=== PATIENT | male | born 1970 | race Caucasian/White ===

== ENCOUNTER 2018-06-30 15:17 | Observation (INO) | payer OTHER ==
[2018-06-30] MEDS ORDERED: TETANUS & DIPHTHERIA TOX,ADULT 0.5 ML VIAL ONE (16:10)
[2018-06-30] MEDS ORDERED: HYDROCODONE/APAP 10/325 TAB ONE (16:16)
--- NOTE | 2018-06-30 16:50 | RAD REPORT ---
EXAM DESCRIPTION: RAD - Hand Right 3 View - 06/30/2018 4:32 pm CLINICAL HISTORY: Right hand pain status post injury FINDINGS: Comminuted mildly displaced fracture involves the mid aspect of the first proximal phalanx . No dislocation seen Old avulsion fracture of the distal ulna noted
--- NOTE | 2018-06-30 17:23 | ER ---
Nurse's Notes [facility] Name: Lennox Garcia III Age: 47 yrs Sex: Male : 1970 Arrival Date: 06/30/2018 Time: 15:20 Bed 26 Private MD: Diagnosis: Laceration without foreign body of right thumb without damage to nail;Displaced fracture of proximal phalanx of right thumb Presentation: 06/30 15:43 Presenting complaint: Patient states: Left thumb smashed between the angle iron, sg laceration sustained to the inner aspect of the thumb, bleeding controlled with pressure at this time. Transition of care: patient was not received from another setting of care. Onset of symptoms was June 30, 2018. Risk Assessment: Do you want to hurt yourself or someone else? Patient reports no desire to harm self or others. Initial Sepsis Screen: Does the patient meet any 2 criteria? No. Patient's initial sepsis screen is negative. Does the patient have a suspected source of infection? No. Patient's initial sepsis screen is negative. Care prior to arrival: None. 15:43 Method Of Arrival: Ambulatory sg 15:43 Acuity: CODY 4 sg Historical: - Allergies: 15:47 No Known Allergies; sg - Home Meds: 19:08 None [Active]; la1 - PMHx: 15:47 None; sg - PSHx: 15:47 None; sg - Immunization history:: Last tetanus immunization: < 10 years ago. - Social history:: Smoking status: Patient/guardian denies using tobacco. - Ebola Screening: : Patient negative for fever greater than or equal to 101.5 degrees Fahrenheit, and additional compatible Ebola Virus Disease symptoms Patient denies exposure to infectious person Patient denies travel to an Ebola-affected area in the 21 days before illness onset No symptoms or risks identified at this time. Screenin:55 Abuse screen: Denies threats or abuse. Nutritional screening: No deficits noted. la1 Tuberculosis screening: No symptoms or risk factors identified. Fall Risk None identified. Assessment: 15:54 General: Appears in no apparent distress. Behavior is calm, cooperative. Pain: la1 Complains of pain in palmar aspect of proximal phalanx of right thumb. Musculoskeletal: Circulation, motion, and sensation intact. Capillary refill < 3 seconds, is brisk, in bilateral fingers. Range of motion: intact in all extremities. 16:57 Reassessment: Patient appears in no apparent distress at this time. No changes from la1 previously documented assessment. Patient and/or family updated on plan of care and expected duration. Pain level reassessed. 18:12 Reassessment: Patient appears in no apparent distress at this time. No changes from la1 previously documented assessment. Patient and/or family updated on plan of care and expected duration. Pain level reassessed. Patient is alert, oriented x 3, equal unlabored respirations, skin warm/dry/pink. Vital Signs: 15:48 BP 134 / 105; Pulse 110; Resp 19; Temp 98.2; Pulse Ox 98% on R/A; Pain 6/10; sg 18:12 BP 146 / 105; Pulse 86; Resp 18; Pulse Ox 98% on R/A; la1 ED Course: 15:20 Patient arrived in ED. ds1 15:45 Triage completed. sg 15:45 Arm band placed on. sg 15:51 Femi Marquez, ELHAM is Primary Nurse. la1 15:55 Randee Lombardo FNP-C is PHCP. kb 15:55 Francisco Tom MD is Attending Physician. kb 15:55 Call light in reach. la1 16:30 Hand Right 3 View XRAY In Process Unspecified. EDMS 17:23 Brian Stahl MD is Hospitalizing Provider. kb 17:23 Dominique Stahl MD is Hospitalizing Provider. kb 17:43 EKG done, by ED staff. lt1 18:12 Inserted saline lock: 22 gauge in left forearm, using aseptic technique. Blood la1 collected. 19:37 No provider procedures requiring assistance completed. Patient admitted, IV remains in la1 place. Administered Medications: 16:07 Drug: Tetanus-Diphtheria Toxoid Adult 0.5 ml {Tucking Machine Operator: Anz[employer]. Exp: la1 05/25/2020. Lot #: [id number]. } Route: IM; Site: right deltoid; 17:02 Follow up: Response: No adverse reaction la1 16:07 Drug: Lidocaine (1 %) 1 vials Volume: 20 ml; Route: Infiltration; la1 16:08 Drug: Boling 10 mg-325 mg 1 tabs Route: PO; la1 17:02 Follow up: Response: No adverse reaction; Pain is decreased la1 18:13 Follow up: Response: No adverse reaction; Temperature is increased la1 17:01 CANCELLED (Physician Discretion): Ancef 1 grams IVPB once kb 18:11 Drug: Unasyn 3 grams Route: IVPB; Infused Over: 30 mins; Site: left forearm; la1 18:13 Follow up: IV Status: Infusion continued upon transfer la1 Outcome: 17:23 Decision to Hospitalize by Provider. kb 19:37 Admitted to Med/surg accompanied by tech, via wheelchair, room 216, with chart. la1 19:37 Condition: stable 19:37 Instructed on the need for admit. 19:38 Patient left the ED. la1 Signatures: Dispatcher [employer] EDMS Randee Lombardo, ASBESTOS WIRE FINISHER-C ASBESTOS WIRE FINISHER-Martin Fernandes RN Pauline Krause ds1 Femi Marquez RN RN laLeann Charles 1
--- NOTE | 2018-06-30 17:23 | EDPHYS ---
Physician Documentation [facility] Name: Lennox Garcia III Age: 47 yrs Sex: Male : 1970 Arrival Date: 06/30/2018 Time: 15:20 Bed 26 Private MD: Francisco Toth HPI: 06/30 16:16 This 47 yrs old Male presents to ER via Ambulatory with complaints of Thumb kb Injury - Laceration. 16:16 The patient has a laceration related to: cutting a piece of steel occurred at home, and kb there are no complicating factors. The injury was accidental. The laceration(s) is(are) located on the dorsal aspect of proximal phalanx of right thumb. Onset: The symptoms/episode began/occurred just prior to arrival. Associated signs and symptoms: The patient has no apparent associated signs or symptoms. The patient has not experienced similar symptoms in the past. The patient has not recently seen a physician. Historical: - Allergies: 15:47 No Known Allergies; sg - Home Meds: 19:08 None [Active]; la1 - PMHx: 15:47 None; sg - PSHx: 15:47 None; sg - Immunization history:: Last tetanus immunization: < 10 years ago. - Social history:: Smoking status: Patient/guardian denies using tobacco. - Ebola Screening: : Patient negative for fever greater than or equal to 101.5 degrees Fahrenheit, and additional compatible Ebola Virus Disease symptoms Patient denies exposure to infectious person Patient denies travel to an Ebola-affected area in the 21 days before illness onset No symptoms or risks identified at this time. ROS: 16:15 Constitutional: Negative for fever, chills, and weight loss, Cardiovascular: Negative kb for chest pain, palpitations, and edema, Respiratory: Negative for shortness of breath, cough, wheezing, and pleuritic chest pain, Abdomen/GI: Negative for abdominal pain, nausea, vomiting, diarrhea, and constipation, Back: Negative for injury and pain, MS/Extremity: Negative for injury and deformity, Neuro: Negative for headache, weakness, numbness, tingling, and seizure. 16:15 Skin: Positive for laceration(s), swelling, of the dorsal aspect of proximal phalanx of right thumb. Exam: 16:15 Constitutional: This is a well developed, well nourished patient who is awake, alert, kb and in no acute distress. Head/Face: Normocephalic, atraumatic. Chest/axilla: Normal chest wall appearance and motion. Nontender with no deformity. No lesions are appreciated. Cardiovascular: Regular rate and rhythm with a normal S1 and S2. No gallops, murmurs, or rubs. Normal PMI, no JVD. No pulse deficits. Respiratory: Lungs have equal breath sounds bilaterally, clear to auscultation and percussion. No rales, rhonchi or wheezes noted. No increased work of breathing, no retractions or nasal flaring. Abdomen/GI: Soft, non-tender, with normal bowel sounds. No distension or tympany. No guarding or rebound. No evidence of tenderness throughout. MS/ Extremity: Pulses equal, no cyanosis. Neurovascular intact. Full, normal range of motion. Neuro: Awake and alert, GCS 15, oriented to person, place, time, and situation. Cranial nerves II-XII grossly intact. Motor strength 5/5 in all extremities. Sensory grossly intact. Cerebellar exam normal. Normal gait. 16:15 Skin: injury, laceration(s), the wound is approximately 3 cm(s), of the dorsal aspect of proximal phalanx of right thumb, that can be described as clean, no foreign body, linear, with mild bleeding. Vital Signs: 15:48 BP 134 / 105; Pulse 110; Resp 19; Temp 98.2; Pulse Ox 98% on R/A; Pain 6/10; sg 18:12 BP 146 / 105; Pulse 86; Resp 18; Pulse Ox 98% on R/A; la1 Laceration: 17:21 Wound Repair of 3cm ( 1.2in ) subcutaneous laceration to dorsal aspect of proximal kb phalanx of right thumb. Linear shaped.. Distal neuro/vascular/tendon intact. Anesthesia: Wound infiltrated with 2 mls of 1% lidocaine. Wound prep: Extensive cleansing with betadine by il, Wound irrigation with saline by il. Skin closed with 4 5-0 Prolene using interrupted sutures and sterile technique. Dressed with 4x4's. Patient tolerated well. MDM: 15:56 Patient medically screened. [facility] 16:15 Data reviewed: vital signs, nurses notes. Data interpreted: Pulse oximetry: on room air kb is 98 %. Interpretation: normal. 16:55 Counseling: I had a detailed discussion with the patient and/or guardian regarding: the kb historical points, exam findings, and any diagnostic results supporting the discharge/admit diagnosis, lab results, the need for further work-up and treatment in the hospital. Physician consultation: Mp Hartley MD was contacted at 16:56, regarding admission, to the medical/surgical unit. consult, patient's condition, and will see patient in inpatient room. 17:21 Physician consultation: Dominique Stahl MD was contacted at 17:21, regarding admission, kb patient's condition, and will see patient in inpatient room. 06/30 17:01 Order name: CBC with Diff kb 06/30 17:01 Order name: Basic Metabolic Panel kb 06/30 16:04 Order name: Hand Right 3 View XRAY; Complete Time: 16:52 kb 06/30 16:04 Order name: Prolene, Sutures; Complete Time: 16:13 kb 06/30 16:04 Order name: Dressing - Wound; Complete Time: 18:13 kb 06/30 16:04 Order name: Gloves, Sterile; Complete Time: 16:13 kb 06/30 16:04 Order name: Setup Suture Tray; Complete Time: 16:13 kb 06/30 17:00 Order name: IV Start; Complete Time: 17:57 kb 06/30 17:03 Order name: EKG; Complete Time: 17:03 ms 06/30 17:03 Order name: EKG - Nurse/Tech; Complete Time: 17:52 ms Administered Medications: 16:07 Drug: Tetanus-Diphtheria Toxoid Adult 0.5 ml {Rotary Drill Operator Helper: [employer]otolog. Exp: la1 05/25/2020. Lot #: [id number]. } Route: IM; Site: right deltoid; 17:02 Follow up: Response: No adverse reaction la1 16:07 Drug: Lidocaine (1 %) 1 vials Volume: 20 ml; Route: Infiltration; la1 16:08 Drug: Florence 10 mg-325 mg 1 tabs Route: PO; la1 17:02 Follow up: Response: No adverse reaction; Pain is decreased la1 18:13 Follow up: Response: No adverse reaction; Temperature is increased la1 17:01 CANCELLED (Physician Discretion): Ancef 1 grams IVPB once kb 18:11 Drug: Unasyn 3 grams Route: IVPB; Infused Over: 30 mins; Site: left forearm; la1 18:13 Follow up: IV Status: Infusion continued upon transfer la1 Disposition: 07/01 07:57 Co-signature as Attending Physician, Francisco Tom MD I agree with the assessment and [facility] plan of care. Disposition: 06/30/18 17:23 Hospitalization ordered by Dominique Stahl for Observation. Preliminary diagnosis are Laceration without foreign body of right thumb without damage to nail, Displaced fracture of proximal phalanx of right thumb. - Bed requested for Telemetry/MedSurg (observation). - Status is Observation. la1 - Condition is Stable. - Problem is new. - Symptoms are unchanged. UTI on Admission? No Signatures: Dispatcher [employer] EDRandee Wilson, ANJELICA-Ofe SPECIALIST MANAGERS-Martin Fernandes, RN Francisco Alexander MD MD cha Solis, Maria ms Attema, Femi RN RN la1 Corrections: (The following items were deleted from the chart) 06/30 16:16 16:15 Skin: Positive for kb kb 17:01 17:00 Ancef 1 grams IVPB once ordered. kb kb 18:18 17:23 Hospitalization Ordered by A Favio HARRIS for Observation. Preliminary diagnosis is ms Laceration without foreign body of right thumb without damage to nail; Displaced fracture of proximal phalanx of right thumb. Bed requested for Telemetry/MedSurg (observation). Status is Observation. Condition is Stable. Problem is new. Symptoms are unchanged. UTI on Admission? No. kb 19:38 18:18 06/30/2018 17:23 Hospitalization Ordered by A Favio HARRIS for Observation. la1 Preliminary diagnosis is Laceration without foreign body of right thumb without damage to nail; Displaced fracture of proximal phalanx of right thumb. Bed requested for Telemetry/MedSurg (observation). Status is Observation. Condition is Stable. Problem is new. Symptoms are unchanged. UTI on Admission? No. ms
[2018-06-30 17:50] LABS: Absolute Lymphocytes (CBC) 1.7 K/uL (0.7-4.9); Absolute Monocytes 1.1 K/uL (0.1-1.3); Absolute Neutrophil 7.8 K/uL (1.8-8.0); Basophils % 0.7 % (0-1.3); Eosinophils % 2.4 % (0-4.4); Hematocrit 44.7 % (39.6-49.0); Lymphocytes % 15.6 % (15.3-44.8); MPV 9.4 fL (7.6-11.3); RBC Red Blood Cell Count 4.84 M/uL (4.33-5.43)
[2018-06-30] MEDS ORDERED: AMPICILLIN/SULBACT 3 GM in NA CHLORIDE 0.9% 100 ML IVPB ONE (18:00)
[2018-06-30 18:18] LABS: BUN Blood Urea Nitrogen 14 mg/dL (7-18); Bicarbonate 25 mmol/L (21-32); Glucose Level 101 mg/dL (74-106); Potassium 4.3 mmol/L (3.5-5.1); Sodium Level 138 mmol/L (136-145)
[2018-06-30] MEDS: AMPICILLIN/SULBACT 3 GM in NA CHLORIDE 0.9% 100 ML IVPB SCH (19:51)
[2018-06-30] MEDS ORDERED: ONDANSETRON 4 MG/2 ML VIAL IV PRN (19:51)
[2018-06-30] MEDS ORDERED: MORPHINE 4 MG/ML SYR IV PRN (19:51)
[2018-06-30 20:15] VITALS: BMI 31.4
[2018-06-30] MEDS: NA CHLORIDE 0.9% 1,000 ML IV SCH (20:35)
[2018-06-30 21:15] LABS: Urine Appearance CLEAR; Urine Bilirubin NEGATIVE (NEG); Urine Blood NEGATIVE (NEG); Urine Color YELLOW; Urine Glucose NEGATIVE (NEG); Urine Protein NEGATIVE (NEG); Urine Urobilinogen 0.2 mg/dL (0.2-1.0)
[2018-06-30 21:32] LABS: Urine Microscopic Reflex NO UMIC
[2018-07-01] MEDS ORDERED: AMPICILLIN/SULBACTAM 3GM/VIAL ONE (00:19)
[2018-07-01] MEDS ORDERED: NA CHLORIDE 0.9% 200 ML ONE (00:29)
[2018-07-01] MEDS: AMPICILLIN/SULBACT 3 GM in NA CHLORIDE 0.9% 100 ML IVPB SCH ×4 (06:00→11:17)
[2018-07-01] MEDS: NA CHLORIDE 0.9% 1,000 ML IV SCH (06:15)
[2018-07-01] MEDS ORDERED: Ringers Lactate 1,000 ML IV ONE (08:55)
[2018-07-01] MEDS ORDERED: PROPOFOL 200 MG/20 ML VIAL IV ONE (09:09)
[2018-07-01] MEDS ORDERED: ONDANSETRON 4 MG/2 ML VIAL ONE (09:10)
[2018-07-01] MEDS ORDERED: LIDOCAINE 2% MPF 5 ML VIAL ONE (09:10)
[2018-07-01] MEDS ORDERED: FENTANYL CITR 100 MCG/2 ML ONE (09:10)
[2018-07-01] MEDS ORDERED: MIDAZOLAM HCL 2 MG/2 ML INJ ONE (09:10)
[2018-07-01] MEDS: MORPHINE 4 MG/ML SYR ONE ×2 (10:29→10:39)
[2018-07-01] MEDS: MEPERIDINE HCL 50 MG/ML AMP ONE ×2 (10:50→10:55)
[2018-07-01 11:01] VITALS: O2SAT 96
--- NOTE | 2018-07-01 11:05 | RAD REPORT ---
EXAM DESCRIPTION: RAD - Hand Right 3 View - 07/01/2018 9:54 am CLINICAL HISTORY: Surgical repair of fractured first proximal phalanx COMPARISON: June 30 FINDINGS: Multiple portable C-arm views were obtained during fluoroscopic assisted placement of frac ture fixation hardware. Fluoro time was 1.4 minutes. There were 33 spot images obtained. Images show stepwise placement of fracture fixation hardware. No suspicious or unexpected finding.
[2018-07-01 12:28] VITALS: BP 118/75; TEMP 97.9
--- NOTE | 2018-07-01 18:42 | EKG ---
Test Date: 2018-06-30 Test Time: 17:39:44 Order Expediter: MIREYAT MEASUREMENT RESULTS: Intervals: Rate: 83 RI: 162 QRSD: 92 QT: 362 QTc: 425 Kinsey: P: 46 RI: 162 QRS: 41 T: 39 INTERPRETIVE STATEMENTS: Normal sinus rhythm Normal ECG Compared to ECG 02/15/2012 20:53:26 No significant changes Electronically Signed On 07-01-18 18:41:25 CONDENSER TESTER by Jan Coronel
--- NOTE | 2018-07-01 21:35 | OP ---
Surgeon: Mp Hartley MD Preoperative Diagnosis: Open fracture, right thumb proximal phalanx. Postoperative Diagnosis: Open fracture, right thumb proximal phalanx. Procedures Performed: Percutaneous pinning, debridement of skin and subcutaneous tissue, simple clos ure of 2-cm wound surgical, and splint. Anesthesia: General. Procedure In Detail: After satisfactory induction of general seizure, right hand was prepped with Be tadine scrub and Betadine paint. Dry sterile drapes were applied in usual manner. The arm was eleva osiris and exsanguinated with Esmarch. Tourniquet was inflated to 250 mmHg. Hand was placed on the ope rating field. A C-arm was brought in with sterile draping and then 0.045 K-wires were placed from pr oximal to distal entering the fracture of the proximal phalanx. The C-arm revealed adequate reductio n. The wires were bent and cut and then the patient underwent debridement of skin and subcutaneous t issue. The wound was jet lavaged, irrigated with 3 L of dilute Betadine solution. Tourniquet was re leased. Electrocautery was used for hemostasis. Wound was closed with 4-0 Prolene vertical mattress and dressed with Xeroform, 2-inch Faviola, Kerlix, and a thumb spica splint. The patient tolerated th e procedure well and returned to recovery. NEETU Voice ID: [id number] Report ID: [id number]
--- NOTE | 2018-07-02 06:51 | HP ---
Date of Admission: 07/01/2018 Chief Complaint: Injury to right thumb. History Of Present Illness: This is a 47-year-old male patient who was working in a shop yesterday at home and a metal object hit his right thumb. The patient had gloves on and after this injury he came to emergency room. Further evaluation revealed laceration of the right thumb in the mid thumb area with underlying fracture. Laceration was repaired by ER physician and the patient was admitted to the hospital, IV antibiotic was started, and hand surgeon, Dr. Hartley was consulted. This morning when I saw him, his was at bedside with him. Medications: He takes omeprazole on a p.r.n. basis. He was prescribed amlodipine and atorvastatin, but he does not take those. Allergies: No known allergies. Review of Systems: Musculoskeletal: As mentioned above. All other systems reviewed and negative. Social History: Negative for smoking. Use of alcohol, positive. Family History: Not pertinent. 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 Otherwise , past surgical history unremarkable. Past Medical History: Hypertension, mixed hyperlipidemia, and abnormal liver function tests. Physical Examination: Vital Signs: Temperature 98.2, pulse 73, respiratory rate 18, blood pressure 112/72, oxygen saturation 94%. Height 5 feet 8 inches, weight 207 pounds. General: Awake, alert, oriented, not in distress. HEENT: Head atraumatic, normocephalic. Conjunctivae nonerythematous. Sclerae white. Mouth, no thrush or edema noted. Ears/Nose, no mass, lesion, discharge noted. Neck: Supple. No JVD, lymph nodes, bruit, thyromegaly noted. Lungs: Bilateral good equal air entry. Clear to auscultation. No rhonchi. No rales. Heart: Normal heart sounds, no murmur or gallop. Abdomen: Soft, bowel sounds normal. No guarding, rigidity, tenderness, mass, hepatosplenomegaly, distention, or bruit noted. Extremities: Right thumb has multiple sutures present over laceration area. No discharge, bleeding, redness. Skin: No rash, ulcer, cellulitis. Lymphatics: No lymph node enlargement in neck, supraclavicular, infraclavicular region. Neuro: No focal neurological deficit. Chest: Unremarkable. External Genitalia: Deferred. Rectal: Deferred. Laboratory Data: White count 11, hemoglobin 15.2, platelets 238. Sodium 138, potassium 4.3, chloride 108, bicarb 25, BUN 14, creatinine 0.84, glucose 101. Urinalysis negative. X-ray of the right hand shows comminuted mildly displaced fracture involving mid aspect of first proximal phalanx. Hospital Course: After the patient was evaluated in the ER, his laceration was repaired and hand surgeon, Dr. Hartley was consulted. The patient was started on IV pain medication and IV Unasyn. The patient was kept n.p.o. after midnight. This morning, he was taken to operating room by Dr. Hartley and after the surgery, Dr. Hartley released him to go home from his point of view and he wrote prescription for Tylenol with Codeine No. 3 and Bactrim DS 1 tablet twice a day for 10 days. Medically, he was stable for discharge and the patient was discharged to go home with instruction to take medication as prescribed by Dr. Hartley and follow up with him per his instruction and follow up at my office per his schedule appointment. Final Diagnoses: 1. Right hand communicated fracture of proximal phalanx. 2. Hypertension. 3. Mixed hyperlipidemia. 4. Gastroesophageal reflux disease. LEOBARDO/MODL Voice ID: [id number] [id number]
== END 2018-07-01 13:24 | disposition home or self-care (01) ==
LOC: ER 15:17 → ERHOLD 17:38 → 2ND 19:26
PROVIDERS: ADMIT Internal Medicine; ATTEND Internal Medicine
PROC: 0PH Upper Bones, Insertion (ICD-10-PCS; principal; 2018-07-01 09:00)
DX: S62.511B Displaced fracture of proximal phalanx of right thumb, initial encounter for open fracture (principal); W20.8XXA Other cause of strike by thrown, projected or falling object, initial encounter; Y92.008 Other place in unspecified non-institutional (private) residence as the place of occurrence of the external cause; I10 Essential (primary) hypertension; E78.2 Mixed hyperlipidemia; K21.9 Gastro-esophageal reflux disease without esophagitis; Z23 Encounter for immunization
CPT/HCPCS: 36415; 80048; 81003; 85025; 90714; 93005; 96374; 99285; G0378; J0295; J2175; J2250; J2405; J2704; J3010; J7030